=== PATIENT | female | born 1955 | race Caucasian/White ===

== ENCOUNTER 2022-04-16 10:28 | Emergency (ER) | payer MEDICARE, SELFPAY ==
[2022-04-16 10:49] VITALS: BP 133/80; PULSE 68; RESP 16; TEMP 36.8; O2SAT 96; BMI 26.6
--- NOTE | 2022-04-16 12:35 | ED_ITS ---
HPI - General Adult General Chief complaint: Laceration/Wound Stated complaint: Loose toenail on left foot Time Seen by Provider: 04/16/22 10:49 History of Present Illness HPI narrative: 62-year-old female patient who presents to the emergency department via POV with complaints of loose toenail on her left foot. The patient denies any injury or trauma. However, approximately 3mo prior, the patient reports that she has recently completed an extended trip where she wore poorly fitted shoes for approximately 1 week. She denies pain associated, bleeding, or bruising around the toe. Today, she noted that the toenail had a different feel and she called her primary for evaluation, and they recommended she present to the emergency department for evaluation. See nursing notes for details. Related Data Previous Rx's Medication Instructions Recorded undecylenic acid 25 % topical 1 applic TOPICAL BID #3 ml 04/16/22 solution (Fungi-Nail) Allergies Allergy/AdvReac Type Severity Reaction Status Date / Time No Known Drug Allergies Allergy Verified 04/16/22 10:56 Review of Systems Const: Denies: fever, chills, fatigue or malaise Musculo: Denies: extremity pain, joint pain or limited range of motion Integ/Breast: Denies: redness, skin tenderness or skin swelling Endo: Denies: fatigue PFSH PFSH Social History Smoking Status: Never smoker Do you use any of these nicotine containing products: None Second hand tobacco smoke exposure: No How often do you have a drink containing alcohol: 2-3 times a week AUDIT-C Alcohol total score: 3 Non-prescribed substance use: denies use Exam Const: Vital Signs, click to edit/add: Vital Signs - 24 hr 04/16/22 10:49 Temperature 98.3 F Pulse Rate [Right Pulse Oximeter] 68 Respiratory Rate 16 Blood Pressure [Ri ght Upper Arm] 133/80 Pulse Oximetry 96 Documenting provider has reviewed patient's vital signs: yes Common normals: no apparent distress, average body habitus, oriented x3, no limitations, healthy appearing, alert and well nourished General appearance: cooperative, comfortable, well kempt and well developed; not in distress Orientation/consciousness: Yes awake, Yes oriented to person, Yes oriented to place and Yes oriented to time Resp: Common normals: normal respiratory effort, no retractions, no use of accessory muscles and clear to auscultation bilaterally Auscultation: clear to auscultation bilaterally Cardio: Common normals: regular rate, regular rhythm, S1 normal heart sound, S2 normal heart sound and peripheral pulses 2+ throughout Rate: regular rate Rhythm: regular rhythm Heart sounds: S1 normal and S2 normal Peripheral pulses: pulses 2+ throughout Extremity: Common normals: normal capillary refill and no clubbing, cyanosis or edema General: other findings (fungal nail, left great toe avulsed to the matrix along the lateral margin) Neuro: Common normals: oriented x3 Sensorium/orientation: awake, alert, oriented to person, oriented to place and oriented to time Gait (neuro): normal gait Sensory exam: sensation present Motor exam: strength 5/5 throughout Psych: Common normals: mental status grossly normal, thought process normal, cooperative, affect normal and activity/motor behavior normal Appearance: well kempt Thought process: normal thought process Insight: insight good Judgement: judgment good Skin: Common normals: no rashes or lesions noted General skin exam: no rashes or lesions noted Nails: discolored (left great toe) and yellow and thickened (left great toe) Course Vital Signs Vital signs: Initial Vital Signs Temperature 98.3 F 04/16/22 10:49 Temperature Source Temporal Artery Scan 04/16/22 10:49 Pulse Rate 68 04/16/22 10:49 Pulse Rhythm 04/16/22 10:49 Respiratory Rate 16 04/16/22 10:49 Blood Pressure 133/80 04/16/22 10:49 Blood Pressure Mean 97 04/16/22 10:49 Blood Pressure Position Sitting 04/16/22 10:49 Pulse Oximetry 96 04/16/22 10:49 Oxygen Delivery Method 04/16/22 10:49 Vital Signs Temperature 98.3 F 04/16/22 10:49 Pulse Rate 68 04/16/22 10:49 Respiratory Rate 16 04/16/22 10:49 Blood Pressure 133/80 04/16/22 10:49 Pulse Oximetry 96 04/16/22 10:49 Temperature 98.3 F 04/16/22 10:49 Pulse Rate 68 04/16/22 10:49 Respiratory Rate 16 04/16/22 10:49 Blood Pressure 133/80 04/16/22 10:49 Pulse Oximetry 96 04/16/22 10:49 Medical Decision Making MDM Narrative Medical decision making narrative: 66yo female patient presented to the ED with acute complaints of thickened nail and separation of nail on the great toe of the left foot. After her nail welsh was removed, the exam was performed, and patient was noted to have avulsed nail to the nail matrix securely adhered at the lateral margin. The patient has no tenderness or pain associated with exam. She is offered removal of the nail, and she defers. She is encouraged to consider open-toed shoes that do not push on the nail. If the nail traumatically removed and bleeding begins, she is encouraged to apply pressure for 20 minutes. The patient is also advised to consider soaking the foot and nail approximately 20 minutes 3 times a day to assist with the fungal infection in the nail as well as healing after nail naturally removes. She is encouraged to return should she have new or worsening symptoms. She is offered fungal treatment for the nail fungus that has likely contributed to this concern. Discharge Plan Discharge Clinical Impression: Onychomycosis, Avulsion of nail Patient Disposition: Home, Self-Care Condition: Stable Instructions: Nail Avulsion (ED) Additional Instructions: Thank you for choosing [facility]. Evidence of onychomycosis is noted on right foot exam. Toenail exam demonstrates thickening, subungual debris and detachment as well as opacity of the nail plate. There is no evidence of periungual tinea pedis or secondary bacterial infection. Patient to use medication as directed, see orders. Also discussed with patient consideration of application of Vicks VapoRub to affected area twice daily. Advised limited evidence, but little harm associated with use. Consider Listerine, original, soaks twice daily while symptomatic. Recurrent disease is common. If this regimen is not effective, return to your primary physician for oral prophylactic medication to be used once monthly for adults during the warm months of the year, when recurrence is most likely. Encouraged to call with any questions and follow up in the clinic if symptoms persist or sooner if symptoms worsen. Activity Level: No Restrictions and Activity as Tolerated Prescriptions: New Fungi-Nail 25 % solution 1 applic topical BID Qty: 3 0RF Follow Up/Referrals: Margarita Humphrey MD [Primary Care Provider] - Stand Alone Forms: [employer] Info Instructions
== END 2022-04-16 12:53 | disposition home or self-care (01) ==
PROVIDERS: Emergency Provider Family Medicine; PCP Family Medicine
DX: S91.202A Unspecified open wound of left great toe with damage to nail, initial encounter (principal); B35.1 Tinea unguium
CPT/HCPCS: 99281; 99282; 99284

== ENCOUNTER 2022-10-30 13:45 | Outpatient (RCR) | payer MEDICARE, SELFPAY ==
--- NOTE | 2022-08-28 13:14 | PT.OPEX ---
PT [facility] Outpatient Eval PT [facility] Outpatient Eval Start: 08/28/22 09:30 Freq: Status: Active Protocol: Document 08/28/22 10:16 ENM (Rec: 08/28/22 11:59 ENM [id number]) E-signed By Elsie Herrera, DPT Physical Therapy Outpatient Evaluation Insurance Information Recert Due Date 11/20/22 Insurance Name Medicare B Medical Diagnosis low back pain, unspecified Treating Diagnosis low back pain, decreased hip strength, decreased core strength Referring MD Humphrey Subjective Subjective Patient presents to PT for left low back pain that has been going on for years. It started in 1993 after lifting her son and it will periodically spasm. The last time it happened it was relieved by muscle relaxants. Patient reports that she doesn 't know how long they stick around for. She can't think of anything that aggravates it or brings it on. Sometimes it can be brought on with more activity but patient can't think of specific movements or activity. Does sometimes throw bails of hay which could contribute to it. No pains at the moment. Reports no numbness or tingling when symptoms are present. Her goal is to decrease the amount of spasms. PMHx: arthritis Pain Comments no pain at this time, when present 07/06 easing: muscle relaxants aggravating: activity Current Work Status Retired Objective Other/Pertinent Objective ROM: FF WNL, HS tightness reported EXT 25% limited without pain just stiffness SB WNL to knee B no pains ROT WNL, slightly less towards the R ext and rot towards the R brought on a twinge in the low back repeated no change in sx, with overpressure no change in sx hip ROM flexion, IR and ER WFL no pains strength: hip extensors 4-/5 B, less range on L compared to R hip abductors 4-/5 B hip flexors L 4-/5 R 4/5 knee extensors 5/5 B core able to engage with knees >90/90 palpation/joint mobility: PA lumbar spine + for pain L4 and 5 CPA and UPA, stiffness and soreness throughout thoracic spine PAs no pain for palpation back and hips gait/balance: SLS noted L hip drop when on R , minimal instability special tests: SLR + for tightness B no reproduction of pain elys + for back pain and tightness greater on L compared to R Functional Test Performed & Score ROSALVA: when present 27/50 54% Assessment Assessment/Impression Patient is a 66 year old female presenting with long history of left sided low back pain and spasms. Patient reports no specific movement or activity that will bring pains/spasm on but when present they are 10/10 pain. They will happen periodically with patient unsure of what irritates or brings on the pain. Her goal for PT is to decrease the frequency of episodes. Upon assessment patients spasm significant pains were not reproduced as patient having no pain at this time. An ache and discomfort in the low back was brought on with ext/rot, PAs L4-5 and hip flexor stretching. Patient with global hip and core weakness, most notable into hip extension and hip abduction. Hip flexor tightness testing bringing on a pull and pain in low back for patient. No significant tenderness to palpation of hip or spine musculature. Symptoms consistent with mechanical low back pain. Patient would greatly benefit from skilled PT to address impairments stated above in order to decrease risk of reoccurrence of symptoms. Primary Functional Limitations When pain is present: household activities, walking, lifting Plan of Care Rehabilitation Potential Good Physical Therapy Goals In 6-8 visits: 1. Patient will be IND with HEP and self management of symptoms 2. Patient will demonstrate and implement proper body mechanics with lifting and household activities to decrease risk of reinjury 3. Patient will improve global hip strength to 4/5 or greater for improved strength/ support to decrease strain on lumbar spine 4. Patient will be able to participate in household cleaning and hay bailing without reports of back spasms following activity Coordination/Communication With Referral Source Treatment Plan/Direct Interventions Joint Mobilization,Manual Therapy,Neuromuscular Re-ed, Self-Care/Home Management, Therapeutic Activities, Therapeutic Exercises Frequency/Duration 1x a week for 6 visits Patient Will Be Discharged From Therapy Completion of LTG(s), Independent w/HEP Evaluation Billing Untimed Code Treatment Minutes 31 Complexity Low Certification Information Initial Certification Date 08/28/22 Ending Certification Date 11/20/22 Provider Signature Shows Agreement With POC & Medical Necessity Physician Signature & Date Requested Please Sign/Date Here Physician Comment/Change : Physician NPI Number #
== END 2022-11-09 16:47 | disposition home or self-care (01) ==
PROVIDERS: PCP Family Medicine; Visit Provider Family Medicine
DX: M54.50 Low back pain, unspecified (principal); Z51.89 Encounter for other specified aftercare
CPT/HCPCS: 97110; 97161

== ENCOUNTER 2023-03-04 12:47 | Outpatient (CLI) | payer MEDICARE, SELFPAY ==
--- NOTE | 2023-03-04 13:00 | CRLHL7_ITS ---
For Patients: As a result of the Century Cures Act, medical imaging exams and procedure reports are released immediately into your electronic medical record. You may view this report before your referring provider. If you have questions, please contact your health care provider. DXA BONE MINERAL DENSITY STUDY Current height (in): 66.0. Weight (lb): 179.0. Menopause age: 51. Ethnicity: White. Reason for exam: Screening for osteoporosis. 1. Have you had a previous hip or vertebral fracture? No. 2. Have you had any fractures during your adult life which did not result from significant trauma (e.g., auto accident)? Yes. 3. Did either of your parents have a hip fracture? Yes. 4. Do you smoke? No. 5. Have you ever taken Glucocorticoids? No. 6. Do you have rheumatoid arthritis? No. 7. Do you have secondary osteoporosis? No. 8. Do you drink 3 or more alcoholic drinks per day? No. 9. Are you being treated for osteoporosis? No. 10. Have you ever taken any of the following medications: Actonel, Evista, Fosamax, Miacalcin, Reclast, Boniva, Forteo, HRT (i.e. estrogen/hormone therapy), Protelos, Prolia, Vitamin D, Calcium, other ??? please specify. ANSWER: Yes, vitamin D, calcium. 11. Do you have any of the following medical conditions: Anorexia or bulimia, asthma or emphysema, end stage renal disease, hyperparathyroidism, any seizure disorders, cancer, inflammatory bowel diseases, hysterectomy, other ??? please specify. ANSWER: No. 12. What was your maximum height (inches)? 68. 13. Do you perform weight bearing exercise regularly? Yes. 14. Do you regularly consume dairy products? Yes. 15. Do you drink caffeinated beverages? No. 16. At what age did your period start? 13. 17. Are you premenopausal? No. 18. How many full term pregnancies have you had? 2. 19. Have you ever missed your period for more than 6 months in a row (not including or menopause)? No. TECHNIQUE: Bone mineral density study was performed using the anchor.travel. FINDINGS: The results of the study expressed as bone mineral density (BMD) are as follows: Lumbar spine L1 to L4: BMD: 0.974 g/cm2. T-score: -0.7. Z-score: 1.3. Neck Left: BMD: 0.711 g/cm2. T-score: -1.2. Z-score: 0.4. Right: BMD: 0.783 g/cm2. T-score: -0.6. Z-score: 1.1. Total Left: BMD: 0.863 g/cm2. T-score: -0.6. Z-score: 0.7. Right: BMD: 0.913 g/cm2. T-score: -0.2. Z-score: 1.1. IMPRESSION: Osteopenia. *Comparison exams done prior to 02/2020 were performed on different unit, [facility]. COMPARISON: Compared with scan of 10/17/2020, the bone mineral density has increased by 2.0 percent at the spine and increased by 2.0 percent at the hip. FRAX 10-year Fracture Risk Major Osteoporotic Fracture: 24 percent Hip Fracture: 2.0 percent Reported Risk Factors: [place] () Neck BMD = 0.711, BMI = 28.9 Hunter West M.D. Diagnostic Radiologist [email or web address] Transcribed: 9:50 am DW/Dictated by: Hunter West MD @ 03/05/2023 6:50:00 AM (Electronically Signed)
== END 2023-03-04 12:48 | disposition home or self-care (01) ==
LOC: RAD 12:49
PROVIDERS: PCP Family Medicine; Visit Provider Family Medicine
DX: Z13.820 Encounter for screening for osteoporosis (principal); M85.80 Other specified disorders of bone density and structure, unspecified site; M85.89 Other specified disorders of bone density and structure, multiple sites
CPT/HCPCS: 77080

== ENCOUNTER 2023-03-15 12:43 | Outpatient (CLI) | payer MEDICARE, SELFPAY ==
--- NOTE | 2023-03-15 13:00 | CRLHL7_ITS ---
For Patients: As a result of the Century Cures Act, medical imaging exams and procedure reports are released immediately into your electronic medical record. You may view this report before your referring provider. If you have questions, please contact your health care provider. BILATERAL SCREENING MAMMOGRAM WITH COMPUTER-AIDED DETECTION AND TOMOSYNTHESIS TECHNIQUE: CC and MLO views were obtained. These mammographic images have been obtained using full-field digital technique. These mammographic images were interpreted with the benefit of computer-aided detection. Breast Tomosynthesis was used in this interpretation. COMPARISON FILM: 03/13/22, 09/12/20, 05/24/12. FINDINGS: There are scattered areas of fibroglandular density IMPRESSION: There is no radiographic evidence for malignancy. ASSESSMENT: BI-RADS Category 2: Benign RECOMMENDATION: Routine screening mammogram in 1 year. A lay language report of this examination will be provided to the patient. Butch Clarke M.D. Diagnostic/Nuclear Medicine Radiologist [email or web address] JULIETA/Dictated by: Butch Clarke MD @ 03/16/2023 8:06:00 AM (Electronically Signed)
== END 2023-03-15 12:44 | disposition home or self-care (01) ==
LOC: MAMMO 12:43
PROVIDERS: PCP Family Medicine; Visit Provider Family Medicine
DX: Z12.31 Encounter for screening mammogram for malignant neoplasm of breast (principal)
CPT/HCPCS: 77063; 77067

== ENCOUNTER 2023-05-18 07:30 | Outpatient (CLI) | payer MEDICARE, SELFPAY | END 2023-05-18 07:31 | disposition home or self-care (01) | LOC: NFLDREF 05-19 15:55 | PROVIDERS: PCP Family Medicine; Referring Provider Family Medicine; Visit Provider Family Medicine | DX: E78.5 Hyperlipidemia, unspecified (principal) | CPT/HCPCS: 80061 ==

== ENCOUNTER 2024-01-03 14:07 | Outpatient (CLI) | payer MEDICARE, SELFPAY ==
--- NOTE | 2024-01-03 14:30 | MR_ITS ---
Patient: BELLE CENTENO Facility:?[facility] Patient ID:?[id number] Site Patient ID:?[id number]. Site :?[id number] Study:?MRI-Extremity Left ANKLE-01/03/2024 3:59:16 PM Ordering Physician:TRENT MUNOZ Final Report: EXAM: MRI OF THE LEFT ANKLE, WITHOUT CONTRAST CLINICAL INDICATION: Ankle pain following injury. COMPARISON PLAIN FILMS: 02/27/2019. COMPARISON CROSS-SECTIONAL IMAGING STUDIES: 04/26/2019 MRI. TECHNICAL: Axial, sagittal and coronal T1, PD, PD FS and STIR images. FINDINGS: OSSEOUS STRUCTURES: Small amount of intramedullary edema in the anterior aspect of the tibial plafond consistent with a contusion. No fractures are evident. JOINT SPACES: Moderate sized ankle joint effusion without synovitis. No loose body. The articular cartilage is intact. The subtalar joints are maintained. The talonavicular and joint space is maintained. 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 LIGAMENTS: Syndesmotic Ligaments: The anterior and posterior syndesmotic ligaments are intact. Lateral Ligaments: Thickening and increased signal in the anterior talofibular ligament with adjacent soft tissue edema. Findings consistent with a partial- thickness tear that has an acute to subacute component. Tear of the calcaneal fibular ligament is again identified. The posterior talofibular ligament is intact. Medial Ligaments: Edema in the deep portion of the deltoid ligament complex consistent with mild sprain. Spring Ligaments: The calcaneonavicular spring ligament complex is intact. TENDONS: Flexor Tendons: The posterior tibial, flexor digitorum longus and flexor hallucis longus tendons are intact. Extensor Tendons: The anterior extensor tendons are intact. Achilles Tendon: New complex tear of the Achilles tendon involves the distal myotendinous junction and proximal portion of the Achilles tendon. Although the tendon tear is full-thickness over a 6.5 cm CC distance, the low-lying soleus muscle remains contiguous with the proximal ACL. No fluid-filled gap is evident. Moderate strain of the distal soleus musculature. Moderate Achilles tendinopathy has progressed. Peroneal Tendons: The peroneus longus and brevis tendons are intact. No subluxation of the peroneal tendons. TARSAL TUNNEL: The soft tissues of the tarsal tunnel are normal without mass or fluid collection. No abnormality along the course of the medial or lateral plantar nerves. SINUS TARSI: The structures of the sinus tarsi appear normal. No disruption of the interosseous ligaments or significant effacement of fat. PLANTAR SOFT TISSUES: The plantar fascia is intact. There is no significant plantar calcaneal spur. No atrophy or edema of the abductor digiti minimi muscle belly. SOFT TISSUES: Moderate posterior subcutaneous edema. No subcutaneous hematoma. IMPRESSION: 1. New high-grade tear of the Achilles myotendinous junction and proximal Achilles tendon with strain of the soleus musculature and progression of the moderate Achilles tendinopathy. 2. Contusion in the anterior aspect of the tibial plafond. 3. Tear of the anterior talofibular ligament consistent with an acute to subacute component. 4. Stable tear of the calcaneofibular ligament. 5. Mild strain of the deep portion of the deltoid ligament complex. 6. Moderate-sized ankle joint effusion. 7. Posterior subcutaneous edema. Dictated by Brenton Page MD @ 01/04/2024 11:03:13 AM Signed by:?Brenton Page MD @01/04/2024 11:03:13 AM (Electronic Signature)
== END 2024-01-03 14:08 | disposition home or self-care (01) ==
LOC: MRI 14:08
PROVIDERS: PCP Family Medicine; Visit Provider Internal Medicine
DX: S99.919A Unspecified injury of unspecified ankle, initial encounter (principal); S86.012A Strain of left Achilles tendon, initial encounter; S93.422A Sprain of deltoid ligament of left ankle, initial encounter; M25.472 Effusion, left ankle
CPT/HCPCS: 73721

== ENCOUNTER 2024-02-15 07:28 | Outpatient (CLI) | payer MEDICARE, SELFPAY ==
--- OUTSIDE RECORDS SUMMARY | 2024-03-04 21:29 | XMS_ITS | Clinical Summary ---
Author Organization [facility] Address [place], [place] [address] Care Team Providers Care Dietitian Helper Name Role Phone Margarita Humphrey MD Primary Care Provider + Allergies No known active allergies Medications Medication Sig Dispensed Refills Start Date End Date Status multivitamin (MVI) tablet Daily Active doxylamine succinate (SLEEP AID ORAL) Bedtime Active rosuvastatin (CRESTOR) 5 mg tablet TAKE ONE TABLET BY MOUTH ONE TIME DAILY* 11/17/2023 Active Active Problems No known active problems Encounters Date Type Department Care Team Description 12/08/2023 9:00 AM CDT Procedure Only [address] [place] [address] Brenton Alvarado MD Procedure (US guided injections - bilatera... 12/08/2023 Travel from Last 3 Months Social History Tobacco Use Types Packs/Day Years Used Date Smoking Tobacco: Former Smokeless Tobacco: Never Tobacco Cessation:Counseling Given: Yes Sex and Gender Information Value Date Recorded Sex Assigned at Not on file Gender Identity Not on file Sexual Orientation Not on file Obstetrics History Last Filed Vital Signs Vital Sign Reading Time Taken Comments Blood Pressure 131/75 12/08/2023 8:58 AM CDT Pulse 57 12/08/2023 8:58 AM CDT Temperature 36.6 ??C (97.9 ??F) 12/08/2023 8:58 AM CD T Respiratory Rate - - Oxygen Saturation 97% 12/08/2023 8:58 AM CDT Inhaled Oxygen Concentration - - Weight 81.6 kg (180 lb) 12/01/2023 9:59 AM BELT MOLDER Height - - Body Mass Index - - Plan of Treatment Health Maintenance Due Date Last Done Comments Tdap 1966 Depression screening for age 12+ 1967 BMI (ht and wt on same day) for age 18+ 1973 Hepatitis C screening for ag e 18-79 1973 Tetanus booster 1975 Colonoscopy through age 75 2000 Lipids for age 45-75 2000 Mammogram for age 45-75 2000 Zoster (shingles) series for age 50+ (1 of 2) 2005 DEXA/DXA scan for age 65+ 2020 Medicare Wellness for age 65+ 2020 Pneumococcal series for age 65+ (1 of 1 - PCV) 2020 COVID-19 vaccine series (2022-24 season) 2023 06/26/2022, 01/07/2022, 06/27/2021, Additional history exists Influenza for age 65+ 05/28/2024 Procedures Procedure Name Priority Date/Time Associated Diagnosis Comments BEDSIDE US STUDY ARCHIVE Routine 12/08/2023 11:59 AM CDT Osteoarthritis of left ankle and foot Peroneal tendinitis of left lower extremity Peroneal tendonitis, right from Last 3 Months Results * BEDSIDE US STUDY ARCHIVE (12/08/2023 11:59 AM CDT) Narrative Amira Mojica - 12/08/2023 11:59 AM CDT The patient was seen for ultrasound guided injection by Dr. Brenton Alvarado. Ultrasound was not used for diagnostic purposes, but to guide the needle placement and document the position of the injection. ?? See patient's EPIC encounter for the detail of the procedure; see SUBHA for saved images of the injection. Brenton Alvarado MD PROCEDURE ORD from Last 3 Months Care Teams Dietitian Helper Relationship Specialty Start Date End Date Margarita Humphrey MD [address] [place] [address] PCP - General Family Practice 03/11/22
--- OUTSIDE RECORDS SUMMARY | 2024-03-04 21:29 | XMS_ITS | Encounter Summary ---
Author Organization [facility] Address [address] [place] [address] Care Team Providers Care Sergeant Of Corrections Name Role Phone Avelino Rangel MD Unavailable [phone] Encounter Details Date Type Department Care Team (Late st Contact Info) Description 09/25/2009 9:36 AM [facility] in [address] [phone] Avelino Rangel MD [place] [address] Social History Tobacco Use Types Packs/Day Years Used Date Smoking Tobacco: Never Smokeless Tobacco: Never Alcohol Use Standard Drinks/Week Comments Yes 0 (1 standard drink = 0.6 oz pur e alcohol) wine Sex and Gender Information Value Date Recorded Sex Assigned at Not on file Gender Identity Not on file Sexual Orientation Not on file documented as of this encounter Progress Notes * Avelino Rangel MD - 09/26/2009 10:47 AM [facility] PROCEDURE/OPERATIVE REPORT Date of Procedure: 09/25/2009 PREOPERATIVE DIAGNOSIS: Right ring finger proximal phalanx malunion. POSTOPERATIVE DIAGNOSIS: Right ring finger proximal phalanx malunion. PROCEDURE: 1. Open reduction internal fixation of right ring finger proximal phalanx malunion using lag screw and 1.5 millimeter neutralization plate. 2. Extensor and flexor tenolysis right ring finger. 3. Intraoperative interpretation of fluoroscopy. SURGEON: Avelino Rangel M.D. ANESTHESIA: Regional brachial plexus block. ESTIMATED BLOOD LOSS: Minimal. SPECIMENS: None. COMPLICATIONS: None. INDICATIONS FOR PROCEDURE: Ms. Abbie presented after a right ring finger proximal phalanx fracture on June 07, 2009. She had been treated with a previous extensor tenolysis. However, she had persistent loss of hand motion and stiffness. This was felt to be due to a degree of shortening and from a volar spike of bone. Risks and benefits of open reduction internal fixation including the anticipated goal of about 50% normal finger function were reviewed along with a possible need for tenolysis. Patient desired elective surgery. BRIEF DESCRIPTION OF PROCEDURE: The patient was properly identified and consent was confirmed prior to the procedure. She was brought the operating room after an infraclavicular block was administered in the preoperative area. Right upper extremity was prepped and draped in the standard fashion. The entire team verified the correct nature of procedure and operative site. Esmarch exsanguination was used. Tourniquet was inflated to 250 millimeters of pressure. The patient's previous longitudinal incision over the dorsal aspect of her proximal phalanx was opened. There was thick scar tissue to the extensor mechanism and the extensor tendons were sharply freed superficially. The deep surface of the extensor tendon was also tightly tethered to periosteum and bone below. The extensor tendon was mobilized from these adhesions sharply. The midaspect of the extensor tendon was opened the entire length of the proximal phalanx. I then made a subperiosteal dissection to expose the region of the fracture and the volar spike of bone. Flexor tendons were adherent around the volar spike of bone and these were also freed sharply. This allowed me to visualize the volar spike of bone. The fracture was solidly united. I had to use an osteotome and mallet to try to recreate the fracture line. After completing this I used a curette to remove some of the healing callus. However, it was impossible to verma in the fracture at this stage as the distal fracture point for the spike was no longer apparent. I did bring the finger out to length using traction and fracture reduction clamps and this was the best that I could achieve. A lag screw was placed using standard AO technique using a 2 millimeter screw. Only a single lag screw could be accommodated on this relatively short oblique plane. I then used a neutralization type plate, a 1.5 millimeter plate was prebent. A 6 hole plate was used, 3 holes were used proximally and 2 holes used distally with standard AO technique. I was very happy with the stability of the fracture and the patient was able to achieve good passive range of motion to near complete flexion without any displacement at the fracture site. There was quite a bit of tightness of the finger with deep finger flexion. The wounds were irrigated. The extensor mechanism was closed with running PDS suture. I did use fluoroscopy to confirm appropriate screw lengths and the screw size was adjusted as needed. The skin was closed with interrupted 4-0 nylon suture. The patient was placed in well-padded volar splint. She tolerated the procedure well. She was transferred to the recovery area in stable condition. She is set up for a hand therapy appointment on Wednesday and I want to start working on aggressive active range of motion and gentle passive range of motion exercises. Kathy Chang/francesca cc: Kathy Gonzalez O.T.Marla RT ENGINEER documented in this encounter Plan of Treatment Not on file documented as of this encounter Visit Diagnoses Not on filedocumented in this encounter Care Teams Sergeant Of Corrections Relationship Specialty Start Date End Date Avelino Rangel MD XXX NO INFO FOUND XXX [place] [id number] PCP - Surgery 09/03/09 10/19/17 documented as of this encounter
--- OUTSIDE RECORDS SUMMARY | 2024-03-04 21:29 | XMS_ITS | Encounter Summary ---
Author Organization [facility] Address [address] [place] [address] Care Team Providers Care Pharmacy Billing Adjudicator Name Role Phone Avelino Rangel MD Unavailable Encounter Details Date Type Department Care Team (Late st Contact Info) Description 02/19/2010 10:41 AM CDT [facility] in [address] [phone] Avelino Rangel MD XXX [place] [address] Social History Tobacco Use Types Packs/Day Years [...] Progress Notes * Avelino Rangel MD - 02/19/2010 2:39 PM CDT PROCEDURE/OPERATIVE REPORT Date of Procedure: 02/19/10 PREOPERATIVE DIAGNOSIS: Right ring finger stiffness after open reduction internal fixation of proximal phalanx fracture. POSTOPERATIVE DIAGNOSIS: Right ring finger stiffness after open reduction internal fixation of proximal phalanx fracture. PROCEDURE: 1. Extensor tenolysis right ring finger. 2. Hardware removal consisting of plate and lag screw. 3. PIP joint dorsal capsulotomy with release of extensor contracture. 4. Excision of radial lateral band. SURGEON: Avelino Rangel M.D. ANESTHESIA: Regional block. EBL: Minimal. SPECIMENS: None. COMPLICATIONS: None. INDICATIONS FOR PROCEDURE: 54-year-old who had an open reduction internal fixation of a malunion of a right ring finger proximal phalanx fracture. She had good bony fusion but had persistent stiffness of the joint secondary to extensor tendon adhesions. Risks and benefits of hardware removal and tenolysis were reviewed and patient presented for elective operative intervention. BRIEF DESCRIPTION OF PROCEDURE: Patient was properly identified, consent was confirmed prior to the procedure. She was brought to the operating room and a brachial plexus block was administered. Right upper extremity was prepped and draped in a standard fashion. The entire team verified the correct nature of procedure and site. I then used Esmarch exsanguination, tourniquet was inflated to 250 mm of pressure. I reopened the patient's dorsal incision over the proximal phalanx. The patient's preoperative range of motion was measured with a goniometer and it measured 35 to 66 degrees. The dorsal subcutaneous tissues of the finger were densely adherent to the extensor tendon. These were mobilized. The extensor tendon was then split in its midaspect. It was adherent also to the periosteum and plate below. It was freed sharply. The previously placed 1.5 mm plate and all 5 screws were then removed. The single lag screw was also removed. The periosteum of the bone below was smoothed to create a smoother gliding surface for the tendon using a rasp and rongeurs as well as a periosteal elevator. I then completely freed the extensor tendon from the MP joint to the PIP joint visualizing the central slip insertion distally. The radial lateral band was densely adherent to the periosteum and subcutaneous tissues. I freed this and the lateral band was compromised and I essentially excised much of the lateral band during this dissection. The ulnar lateral band was preserved. The dorsal PIP joint capsule was then opened longitudinally. This significantly released the extensor adhesions and I could then achieved PIP joint flexion of 100 degrees after completely freeing the tendon adhesions and releasing the joint capsule as described. I was happy with the finger range of motion at this stage. The extensor tendon was closed using running PDS suture. The tourniquet was deflated. Hemostasis was achieved with bipolar cautery. The tourniquet was then reinflated for skin closure. 4-0 nylon was used for skin closure. The patient was placed in a well-padded ulnar gutter splint allowing some motion at the PIP joint. She is scheduled to start hand therapy tomorrow. I would then begin active and passive range of motion at the PIP joint. I would make 2 splints, one with maximal flexion at the PIP joint and one with maximal extension. After closing the skin, I could achieve range of motion of 15 degrees to 105 degrees at the PIP joint passively. Patient tolerated the procedure well. She was transferred to the recovery room in stable condition. Avelino Rangel M.D. BETHANY/baljinder cc: Kathy Gonzalez documented in this encounter Plan of Treatment Not on file documented as of this encounter Visit Diagnoses Not on filedocumented in this encounter Care Teams Pharmacy Billing Adjudicator Relationship Specialty Start Date End Date Avelino Rangel MD [place] [address] PCP - Surgery 09/03/09 10/19/17 documented as of this encounter
--- OUTSIDE RECORDS SUMMARY | 2024-03-04 21:29 | XMS_ITS | Referral Summary ---
Author Organization [facility] Address [address] [place] [address] Care Team Providers Care Automatic Bow Maker Machine Tender Name Role Phone No Ref-Primary, Physician Primary Care Provider Allergies No known active allergies Medications Medication Sig Dispensed Refills Start Date End Date Status ORDER FOR DMEIndications:Fract ure of proximal phalanx of finger edema glove 1 Units 0 03/07/2010 Active Additional Information Patient not taking.Reported on 05/21/2019 ORDER FOR DMEIndications:Fract ure of proximal phalanx of finger tens 1 Units 0 03/12/2010 Active Additional Information Patient not taking.Reported on 05/21/2019 Active Problems Problem Noted Date Diagnosed Date Fracture of proximal phalanx of finger 9 Social History Tobacco Use Types Packs/Day Years Used Date Smoking Tobacco: Never Smokeless Tobacco: Never Alcohol Use Standard Drinks/Week Comments Yes 0 (1 standard drink = 0.6 oz pur e alcohol) wine Sex and Gender Information Value Date Recorded Sex Assigned at Not on file Gender Identity Not on file Sexual Orientation Not on file Last Filed Vital Signs Vital Sign Reading Time Taken Comments Blood Pressure 124/72 05/21/2019 3:41 PM CDT Pulse 62 05/21/2019 3:41 PM CDT Temperature 36.6 ??C (97.9 ??F) 05/21/2019 3:41 PM CD T Respiratory Rate 16 05/21/2019 3:41 PM CDT Oxygen Saturation 96% 05/21/2019 3:41 PM CDT Inhaled Oxygen Concentration - - Weight 56.7 kg (125 lb) 05/21/2019 3:41 PM CDT Height 170.8 cm (5' 7.25) 05/21/2019 3:41 PM CD T Body Mass Index 19.43 05/21/2019 3:41 PM CDT Plan of Treatment Not on file Care Teams Automatic Bow Maker Machine Tender Relationship Specialty Start Date End Date No Ref-Primary, Physician PCP - General 05/21/19
--- OUTSIDE RECORDS SUMMARY | 2024-03-04 21:29 | XMS_ITS | Encounter Summary ---
Author Organization [facility] Address [address] [place] [address] Care Team Providers Care Strap Sewer Name Role Phone Avelino Rangel MD Unavailable [phone] Encounter Details Date Type Department Care Team (Late st Contact Info) Description 09/30/2009 9:42 AM [facility] in [address] [phone] Avelino Rangel MD [place] [address] Social History Tobacco Use Types Packs/Day Years Used Date Smoking Tobacco: Never Smokeless Tobacco: Never Alcohol Use Standard Drinks/Week Comments Yes 0 (1 standard drink = 0.6 oz pur e alcohol) wine Sex and Gender Information Value Date Recorded Sex Assigned at Not on file Gender Identity Not on file Sexual Orientation Not on file documented as of this encounter Plan of Treatment Not on file documented as of this encounter Visit Diagnoses Not on filedocumented in this encounter Care Teams Strap Sewer Relationship Specialty Start Date End Date Avelino Rangel MD XXX [place] [address] PCP - Surgery 09/03/09 10/19/17 documented as of this encounter
--- OUTSIDE RECORDS SUMMARY | 2024-03-04 21:29 | XMS_ITS | Clinical Summary ---
Author Organization [facility] Address [address] [place] [address] Care Team Providers Care Door Framer Name Role Phone No Ref-Primary, Physician Primary [...] of Treatment Not on file Care Teams Door Framer Relationship Specialty Start Date End Date No Ref-Primary, Physician PCP - General 05/21/19
--- OUTSIDE RECORDS SUMMARY | 2024-03-04 21:29 | XMS_ITS | Encounter Summary ---
Author Organization [facility] Address [address] [place] [address] Care Team Providers Care Inside Meter Tester Name Role Phone Unavailable Primary Care Provider Unavailabl e Encounter Details Date Type Department Care Team (Late st Contact Info) Description 07/02/2009 3:22 PM CDT [facility] in [address] [phone] Orlando Hawkins MD [address] [phone] Social History Tobacco Use Types Packs/Day Years [...]
== END 2024-02-15 07:29 | disposition home or self-care (01) ==
LOC: NFLDREF 03-04 21:27
PROVIDERS: PCP Family Medicine; Referring Provider Family Medicine; Visit Provider Family Medicine
DX: E55.9 Vitamin D deficiency, unspecified (principal); E78.5 Hyperlipidemia, unspecified; M85.80 Other specified disorders of bone density and structure, unspecified site; Z13.1 Encounter for screening for diabetes mellitus
CPT/HCPCS: 80061; 82306; 82947

== ENCOUNTER 2024-04-03 08:48 | Outpatient (CLI) | payer MEDICARE, SELFPAY ==
--- OUTSIDE RECORDS SUMMARY | 2024-04-03 08:50 | XMS_ITS | Referral Summary ---
Author Organization [facility] Address [address] [place] [address] Care Team Providers Care Sql Programmer Name Role Phone No Ref-Primary, Physician Primary [...] of Treatment Not on file Care Teams Sql Programmer Relationship Specialty Start Date End Date No Ref-Primary, Physician PCP - General 05/21/19
--- OUTSIDE RECORDS SUMMARY | 2024-04-03 08:50 | XMS_ITS | Clinical Summary ---
Author Organization [facility] Address [address] [place] [address] Care Team Providers Care Manufacturing Clerk Name Role Phone No Ref-Primary, Physician Primary [...] of Treatment Not on file Care Teams Manufacturing Clerk Relationship Specialty Start Date End Date No Ref-Primary, Physician PCP - General 05/21/19
--- OUTSIDE RECORDS SUMMARY | 2024-04-03 08:51 | XMS_ITS | Encounter Summary ---
Author Organization [facility] Address [address] [place] [address] Care Team Providers Care Atmospheric Sciences Professor Name Role Phone Avelino Rangel MD Unavailable [phone] Encounter Details Date Type Department Care Team (Late st Contact Info) Description 09/25/2009 9:36 AM [facility] in [address] [phone] Avelino Rangel MD [place] [address] Social History Tobacco Use Types Packs/Day Years [...] exercises. Kathy Chang/francesca cc: Kathy Gonzalez O.T.Marla E DELIVERY SERVICE DRIVER documented in this encounter Plan of Treatment Not on file documented as of this encounter Visit Diagnoses Not on filedocumented in this encounter Care Teams Atmospheric Sciences Professor Relationship Specialty Start Date End Date Avelino Rangel MD XXX NO INFO FOUND XXX [place] [address] PCP - Surgery 09/03/09 10/19/17 documented as of this encounter
--- OUTSIDE RECORDS SUMMARY | 2024-04-03 08:51 | XMS_ITS | Clinical Summary ---
Author Organization [facility] Address [place], [place] [address] Care Team Providers Care Fabric Awning Repairer Name Role Phone Margarita Humphrey MD Primary Care Provider + Allergies No known active allergies Medications Medication Sig Dispensed Refills Start Date End Date Status multivitamin (MVI) tablet Daily Active doxylamine succinate (SLEEP AID ORAL) Bedtime Active rosuvastatin (CRESTOR) 5 mg tablet TAKE ONE TABLET BY MOUTH ONE TIME DAILY* 11/17/2023 Active Hospital, Clinic, or Other Facility Administered Medication Ordered Dose Route Frequency Start Date End Date Status triamcinolone acetonide (KENALOG) injection 20 mgIndications:Osteoarthrit is of left ankle and foot,Osteoarthritis of right foot, unspecified osteoarthritis type 20 mg IArtic ONE TIME 03/14/2024 03/14/2024 Ended triamcinolone acetonide (KENALOG) injection 10 mgIndications:Peroneal tendinitis of left lower extremity 10 mg IM ONE TIME 03/14/2024 03/14/2024 Ended Active Problems No known active problems Encounters Date Type Department Care Team Description 03/14/2024 2:45 PM CDT Office Visit [facility] [address] [place] [address] Richy Caban DPM Follow Up (Left foot) 03/14/2024 Travel 03/10/2024 Telephone [facility] [address] [place] [address] Richy Caban DPM CALL BACK from Last 3 Months Social History Tobacco Use Types Packs/Day Years Used Date Smoking Tobacco: Former Smokeless Tobacco: Never Tobacco Cessation:Counseling Given: Yes Sex and Gender Information Value Date Recorded Sex Assigned at Not on file Gender Identity Not on file Sexual Orientation Not on file Obstetrics History Last Filed Vital Signs Vital Sign Reading Time Taken Comments Blood Pressure 127/75 03/14/2024 2:31 PM CDT tow er Pulse 72 03/14/2024 2:31 PM CDT Temperature 36.6 ??C (97.9 ??F) 12/08/2023 8:58 AM CD T Respiratory Rate - - Oxygen Saturation 95% 03/14/2024 2:31 PM CDT Inhaled Oxygen Concentration - - Weight 78.9 kg (174 lb) 03/14/2024 2:31 PM CDT Height - - Body Mass Index - [...] history exists Influenza for age 65+ 05/28/2024 Care Teams Fabric Awning Repairer Relationship Specialty Start Date End Date Margarita Humphrey MD [address] [place] [address] PCP - General Family Practice 03/11/22
--- OUTSIDE RECORDS SUMMARY | 2024-04-03 08:51 | XMS_ITS | Encounter Summary ---
Author Organization [facility] Address [address] [place] [address] Care Team Providers Care Word Processing Machine Operator Name Role Phone Unavailable Primary Care Provider Unavailabl e Encounter Details Date Type Department Care Team (Late st Contact Info) Description 07/02/2009 3:22 PM CDT [facility] in [address] [phone] Orlando Hawkins MD [address] [phone] Social History Tobacco Use Types Packs/Day Years [...]
--- OUTSIDE RECORDS SUMMARY | 2024-04-03 08:51 | XMS_ITS | Encounter Summary ---
Author Organization [facility] Address [address] [place] [address] Care Team Providers Care Gameplay Programmer Name Role Phone Avelino Rangel MD Unavailable [phone] Encounter Details Date Type Department Care Team (Late st Contact Info) Description 02/19/2010 10:41 AM CDT [facility] in [address] [phone] Avelino Rangel MD XXX [place] [address] Social History Tobacco Use Types Packs/Day Years [...] on filedocumented in this encounter Care Teams Gameplay Programmer Relationship Specialty Start Date End Date Avelino Rangel MD XXX [place] [address] PCP - Surgery 09/03/09 10/19/17 documented as of this encounter
--- OUTSIDE RECORDS SUMMARY | 2024-04-03 08:51 | XMS_ITS | Encounter Summary ---
Author Organization [facility] Address [address] [place] [address] Care Team Providers Care 5Th Grade Teacher Name Role Phone Avelino Rangel MD Unavailable [phone] Encounter Details Date Type Department Care Team (Late st Contact Info) Description 09/30/2009 9:42 AM [facility] in [address] [phone] Avelino Rangel MD XXX [place] [address] Social History Tobacco Use Types Packs/Day Years [...] on filedocumented in this encounter Care Teams 5Th Grade Teacher Relationship Specialty Start Date End Date Avelino Rangel MD XXX [place] [address] PCP - Surgery 09/03/09 10/19/17 documented as of this encounter
--- NOTE | 2024-04-03 09:15 | CRLHL7_ITS ---
For Patients: As a result of the Cures Act, medical imaging exams and procedure reports are released immediately into your electronic medical record. You may view this report before your referring provider. If you have questions, please contact your health care provider. BILATERAL SCREENING MAMMOGRAM WITH COMPUTER-AIDED DETECTION AND TOMOSYNTHESIS TECHNIQUE: CC and MLO views were obtained. These mammographic images have been obtained using full-field digital technique. These mammographic images were interpreted with the benefit of computer-aided detection. Breast Tomosynthesis was used in this interpretation. COMPARISON FILM: 03/15/23, 03/13/22, 09/12/20. FINDINGS: There are scattered areas of fibroglandular density IMPRESSION: There is no radiographic evidence for malignancy. ASSESSMENT: BI-RADS Category 2: Benign RECOMMENDATION: Routine screening mammogram in 1 year. A lay language report of this examination will be provided to the patient. JOIE CHERRY M.D. Diagnostic/Nuclear Medicine Radiologist [email or web address] GABE:[email or web address] Transcribed: 12:42 p.mCarol alicea/Dictated by: Joie Cherry MD @ 04/06/2024 8:33:00 AM (Electronically Signed)
== END 2024-04-03 08:49 | disposition home or self-care (01) ==
LOC: MAMMO 08:49
PROVIDERS: PCP Family Medicine; Visit Provider Family Medicine
DX: Z12.31 Encounter for screening mammogram for malignant neoplasm of breast (principal)
CPT/HCPCS: 77063; 77067

== ENCOUNTER 2025-02-15 07:35 | Outpatient (CLI) | payer MEDICARE, SELFPAY | END 2025-02-15 07:36 | disposition home or self-care (01) | LOC: NFLDREF 02-18 20:05 | PROVIDERS: PCP Family Medicine; Referring Provider Family Medicine; Visit Provider Family Medicine | DX: E78.5 Hyperlipidemia, unspecified (principal); M85.852 Other specified disorders of bone density and structure, left thigh; M81.0 Age-related osteoporosis without current pathological fracture; R53.83 Other fatigue | CPT/HCPCS: 80053; 80061; 82306 ==

== ENCOUNTER 2025-04-05 08:57 | Outpatient (CLI) | payer MEDICARE, SELFPAY ==
--- NOTE | 2025-04-05 09:15 | CRLHL7_ITS ---
For Patients: As a result of the Century Cures Act, medical imaging exams and procedure reports are released immediately into your electronic medical record. You may view this report before your referring provider. If you have questions, please contact your health care provider. INDICATION: BILATERAL SCREENING MAMMOGRAM, ASSYMPTOMATIC 69 Y/O FEMALE COMPARISON: 04/03/2024, 03/15/2023, 03/13/2022 TECHNIQUE: Digital mammogram in CC and MLO projections including computer-aided detection (CAD) and tomosynthesis. BREAST COMPOSITION: There are scattered areas of fibroglandular density. FINDINGS: No suspicious findings. ASSESSMENT: BI-RADS 1 Negative RECOMMENDATION: Annual screening mammogram. A lay language report of this examination will be provided to the patient. Dictated by: Hunter West MD @ 04/05/2025 09:50:54 (Electronically Signed)
== END 2025-04-05 08:58 | disposition home or self-care (01) ==
LOC: MAMMO 08:58
PROVIDERS: PCP Family Medicine; Visit Provider Family Medicine
DX: Z12.31 Encounter for screening mammogram for malignant neoplasm of breast (principal)
CPT/HCPCS: 77063; 77067

== ENCOUNTER 2025-07-18 14:43 | Outpatient (CLI) | payer MEDICARE, SELFPAY | END 2025-07-18 14:44 | disposition home or self-care (01) | PROVIDERS: PCP Family Medicine; Visit Provider Family Medicine | DX: R06.02 Shortness of breath (principal) | CPT/HCPCS: 80053; 85379 ==

== ENCOUNTER 2025-07-19 10:34 | Outpatient (CLI) | payer MEDICARE, SELFPAY ==
--- NOTE | 2025-07-19 11:00 | CRLHL7_ITS ---
For Patients: As a result of the Century Cures Act, medical imaging exams and procedure reports are released immediately into your electronic medical record. You may view this report before your referring provider. If you have questions, please contact your health care provider. INDICATION: SHORTNESS OF BREATH, EVALUATING FOR PE COMPARISON: Chest x-ray 07/18/2025 TECHNIQUE: CT Chest Angio PE Protocol WITH 95 CC`S ISOVUE 370 nonionic intravenous contrast. Please note that all CT scans at this facility use dose modulation, iterative reconstruction, and/or weight-based dosing when appropriate to reduce radiation dose to as low as reasonably achievable. FINDINGS: The CT images are of acceptable quality and demonstrate normal uniform vascular enhancement within the pulmonary arteries. There are no suspicious filling defects which would indicate pulmonary thromboemboli. There is no evidence of pleural or pericardial fluid. The heart and thoracic aorta appear normal. There is no evidence of lymphadenopathy within the central mediastinum or within either axilla. On lung window settings, there is no evidence of pneumothorax. The pulmonary parenchyma has uniform density and there is no evidence of hemorrhage or pneumonia. IMPRESSION: No evidence of pulmonary thromboembolism. Please note that all CT scans at this facility use dose modulation, iterative reconstruction, and/or weight-based dosing when appropriate to reduce radiation dose to as low as reasonably achievable. Dictated by Hunter Wset MD @ 07/19/2025 11:26:27 AM (Electronically Signed)
== END 2025-07-19 10:35 | disposition home or self-care (01) ==
PROVIDERS: PCP Family Medicine; Visit Provider Family Medicine
DX: R06.02 Shortness of breath (principal); R79.89 Other specified abnormal findings of blood chemistry
CPT/HCPCS: 71275; Q9967

== ENCOUNTER 2025-07-24 13:42 | Outpatient (CLI) | payer MEDICARE, SELFPAY ==
[2025-07-24] MEDS: PERFLUTREN LIPID MICROSPHERES 2 ML VIAL IVP (14:45)
--- NOTE | 2025-07-24 14:55 | W.PM.STED ---
Stress Test Note Date Date Seen: 07/24/25 Date of test: 07/24/25 Providers Primary care provider: Margarita Humphrey Stress test physician: Flakita Yost Stress Test Note Stress test ordered: Stress Echo Indication for test: Shortness of breath Stress test medicine: Definity Results discussion: Resting EKG: Sinus rhythm, 61 beats per minute. Resting blood pressure: 134/76 Stress test: Patient is consented on ordered stress test of treadmill exercise stress echo and agrees to proceed. Standard Bill protocol was followed. Patient did require definity. Patient had to stop due to shortness of breath. I was able to auscultate her lungs right after cessation of exercise while she was having post stress echo images done. I did think it could hear some wheezing at peak exercise and indeed on auscultation of her lungs, she had some mild end expiratory wheezing heard throughout. Patient exercised to 6 minutes, needing to stop due to her shortness of breath. This was equivalent to 7.3 Mets. She achieved a maximum heart rate of 145 beats per minute which was 113% of a calculated target heart rate of 128. This gives her rate pressure product of 24,070. There were no arrhythmias noted, no diagnostic EKG changes of ischemia. Await echo images to couple this for a full formal diagnostic. If echo images are negative for ischemia, then would suspect her lungs as the etiology of her symptoms given the wheezing. Impression: Subjectively positive for shortness of breath, objectively negative EKG for ischemia but clinical wheezing documented. Follow up suggested: Await echo images to couple this for a full formal diagnostic. Patient had resolution and improvement of her shortness of breath and wheezing with cessation of physical activity. She does need to follow up with her primary care provider. I would highly recommend further evaluation with formal pulmonary function testing and consideration of lung diseases as the cause of her shortness of breath.
[2025-07-24 14:56] VITALS: BP 142/84; PULSE 77; RESP 16
== END 2025-07-24 14:58 | disposition home or self-care (01) ==
LOC: STRESS 13:43
PROVIDERS: PCP Family Medicine; Visit Provider Family Medicine
DX: R06.02 Shortness of breath (principal); E78.5 Hyperlipidemia, unspecified
CPT/HCPCS: 93016; 93325; 93351; Q9957